=== PATIENT | male | born 1945 | race Caucasian/White ===

== ENCOUNTER → 2023-02-09 | Emergency (ER) | payer OTHER ==
[~2023-02-09] VITALS: Ht 165.1 cm; Wt 102.1 kg
== END | disposition home or self-care (01) ==
LOC: ER 12:23
DX: S79.812A Other specified injuries of left hip, initial encounter (principal); W18.39XA Other fall on same level, initial encounter; Y93.F1 Activity, caregiving, bathing; Y92.012 Bathroom of single-family (private) house as the place of occurrence of the external cause; Z95.1 Presence of aortocoronary bypass graft; I20.8 Other forms of angina pectoris; I10 Essential (primary) hypertension; E03.9 Hypothyroidism, unspecified; I25.2 Old myocardial infarction; E11.9 Type 2 diabetes mellitus without complications